=== PATIENT | female | born 1940 | race Caucasian/White ===

== ENCOUNTER 2020-01-01 13:48 | Outpatient (CLI) | payer MEDICARE ==
--- NOTE | 2020-01-01 16:24 | RAD ---
LEFT FOOT 01/01/20 Four views are submitted. No acute fracture or area of bony destruction was seen. The bones are mildl y osteopenic. Some minor periosteal prominence in some of the metatarsals, especially the fourth, is probably age related. I doubt its significance. Arthritic changes are suggested in the tibiotalar miguel nt. IMPRESSION: Longstanding changes but no acute findings. POS: HOME
== END 2020-01-01 13:49 | disposition home or self-care (01) ==
LOC: BURRAD 13:48
PROVIDERS: ATTEND Family Medicine
DX: M79.672 Pain in left foot (principal)